=== PATIENT | female | born 1925 | race Caucasian/White ===

== ENCOUNTER 2016-05-04 12:35 | Emergency (ER) | payer MEDICARE ==
[~2016-05-04] VITALS: Ht 152.4 cm; Wt 45.0 kg
[~2016-05-04 12:35] MED LIST: ARIC5TAB PO; DILTCD120 PO; LORTA5 PO; NAME5TAB2 PO; OMEP20.62 PO; POTA20IN3 PO; RIVA15 PO; SERT25TA83 PO
[2016-05-04 12:37] VITALS: BP 110/59; PULSE 75; RESP 20; TEMP 97.3; O2SAT 97
[2016-05-04] MEDS ORDERED: POTA10CA PO (12:43)
[2016-05-04] MEDS ORDERED: MEMA1TAB2 PO (12:43)
[2016-05-04] MEDS ORDERED: DONE10TA7 PO (12:43)
[2016-05-04] MEDS ORDERED: RANI150T PO (12:43)
[2016-05-04] MEDS ORDERED: SERT-132 PO (12:43)
--- NOTE | 2016-05-04 12:43 | PD ---
HPI Chief Complaint: Altered Mental Status Time Seen by Provider: 12:43 Travel History International Travel<30 days: No Contact w/Intl Traveler<30days: No Traveled to known affect area: No History of Present Illness HPI 89-year-old female is brought to the emergency department by EMS for evaluation of syncope. Per EMS report the patient lives at home with her daughter. Per EMS she has a history of dementia and is A&O 2 at baseline. Per EMS the patient's daughter went into check on her while she was in the bathroom and noted that the patient was "slumped over" on the toilet. States that she called EMS and 5 minutes later when they arrived the patient was awake with no complaints. The patient does not recall what happened this morning, she is a poor historian due to her dementia. She currently denies any complaints. Denies any chest pain, shortness of breath, abdominal pain, nausea, vomiting, headache, lightheadedness, dizziness, numbness or tingling, weakness. I do notice that the patient is coughing a little bit, she is unsure how long she has been coughing for. No other complaints. PFSH Past Medical History Hx Anticoagulant Therapy: No Alzheimer's Disease: Yes Cancer: Yes Cardiovascular Problems: No Chemotherapy: Yes (HX OF UTERINE CX; LAST CHEMO 2002) Cerebrovascular Accident: No Diabetes: No Diminished Hearing: Yes ([place]) Endocrine: No Gastrointestinal Disorders: Yes GERD: Yes (GERD) Genitourinary: No Hypertension: Yes Immune Disorder: No Implanted Vascular Access Dvce: No Musculoskeletal: No Neurologic: Yes ([place]) Psychiatric: Yes Reproductive: No Respiratory: No Past Surgical History Hysterectomy: Yes Other Surgery: No Social History Alcohol Use: Yes (1 [employer]QU[employer] DRINK NIGHTLY; LAST DRINK 10/17/14) Tobacco Use: No Substance Use: No Allergies-Medications (Allergen,Severity, Reaction): Coded Allergies: No Known Allergies (Unverified , 05/04/16) Reported Meds & Prescriptions Reported Meds & Active Scripts Active Reported Omeprazole 20 Mg Tab 20 Mg PO DAILY Ranitidine (Ranitidine HCl) 150 Mg Tab 150 Mg PO HS Potassium Chloride ER (Potassium Chloride) 10 Meq Cap 10 Meq PO BID Donepezil 10 Mg Tab 10 Mg PO HS Sertraline (Sertraline HCl) 50 Mg Tab 50 Mg PO DAILY Memantine 10 Mg Tab 10 Mg PO BID Review of Systems Except as stated in HPI: all other systems reviewed are Neg Physical Exam Exam Limitations: Poor Historian (dementia) Narrative GENERAL: Well-nourished and well-developed pleasant elderly female patient in no acute distress who is nontoxic appearing. SKIN: Warm and dry. HEAD: Normocephalic and atraumatic. EYES: No injection, drainage, or hyphema noted. PERRLA. EOMI. ENT: No nasal drainage noted. Oropharynx is clear. NECK: Supple and the trachea is midline. CARDIOVASCULAR: Regular rate and rhythm. RESPIRATORY: Breath sounds are equal bilaterally with no accessory muscle use, wheezing, rhonchi, or crackles. GASTROINTESTINAL: Abdomen is soft, non-tender, and nondistended. MUSCULOSKELETAL: No obvious deformities, swelling, cyanosis, or ecchymosis is present throughout the upper and lower extremities. Patient has full range of motion without any signs of neurovascular compromise. Strength 5/5 upper and lower extremities equal bilaterally. NEUROLOGICAL: Awake, alert, and oriented. Normal speech and gait. Normal heel to rod test. No pronator drift. Cranial nerves are grossly intact. Data Data Last Documented VS Vital Signs Date Time Temp Pulse Resp B/P Pulse Ox O2 Delivery O2 Flow Rate FiO2 05/04/16 13:08 97 Room Air 05/04/16 12:37 97.3 75 20 110/59 Orders Electrocardiogram (05/04/16 12:42) Complete Blood Count With Diff (05/04/16 12:42) Comprehensive Metabolic Panel (05/04/16 12:42) Prothrombin Time / Inr (Pt) (05/04/16 12:42) Act Partial Throm Time (Ptt) (05/04/16 12:42) Troponin I (05/04/16 12:42) Urinalysis - C+S If Indicated (05/04/16 12:42) Chest, Single Ap (05/04/16 12:42) Ct Brain W/O Iv Contrast(Rout) (05/04/16 12:42) Ecg Monitoring (05/04/16 12:42) Iv Access Insert/Monitor (05/04/16 12:42) Cath For Specimen (05/04/16 12:42) Oximetry (05/04/16 12:42) Sodium Chloride 0.9% Flush (Ns Flush) (05/04/16 12:45) Labs Laboratory Tests Test 05/04/16 05/04/16 13:17 13:50 White Blood Count 6.1 TH/MM3 Red Blood Count 4.15 MIL/MM3 Hemoglobin 12.1 GM/DL Hematocrit 36.2 % Mean Corpuscular Volume 87.2 FL Mean Corpuscular Hemoglobin 29.2 PG Mean Corpuscular Hemoglobin 33.5 % Concent Red Cell Distribution Width 13.8 % Platelet Count 213 TH/MM3 Mean Platelet Volume 6.7 FL Neutrophils (%) (Auto) 82.4 % Lymphocytes (%) (Auto) 9.9 % Monocytes (%) (Auto) 7.1 % Eosinophils (%) (Auto) 0.2 % Basophils (%) (Auto) 0.4 % Neutrophils # (Auto) 5.0 TH/MM3 Lymphocytes # (Auto) 0.6 TH/MM3 Monocytes # (Auto) 0.4 TH/MM3 Eosinophils # (Auto) 0.0 TH/MM3 Basophils # (Auto) 0.0 TH/MM3 CBC Comment DIFF FINAL Differential Comment Prothrombin Time 11.2 SEC Prothromb Time International 1.0 RATIO Ratio Activated Partial 25.0 SEC Thromboplast Time Sodium Level 140 MEQ/L Potassium Level 4.0 MEQ/L Chloride Level 104 MEQ/L Carbon Dioxide Level 30.1 MEQ/L Anion Gap 6 MEQ/L Blood Urea Nitrogen 14 MG/DL Creatinine 1.18 MG/DL Estimat Glomerular Filtration 43 ML/MIN Rate Random Glucose 90 MG/DL Calcium Level 8.8 MG/DL Total Bilirubin 0.5 MG/DL Aspartate Amino Transf 16 U/L (AST/SGOT) Alanine Aminotransferase 10 U/L (ALT/SGPT) Alkaline Phosphatase 91 U/L Troponin I LESS THAN 0.02 NG/ML Total Protein 6.5 GM/DL Albumin 3.1 GM/DL Urine Color YELLOW Urine Turbidity CLEAR Urine pH 7.5 Urine Specific Boyd 1.011 Urine Protein TRACE mg/dL Urine Glucose (UA) NEG mg/dL Urine Ketones NEG mg/dL Urine Occult Blood NEG Urine Nitrite NEG Urine Bilirubin NEG Urine Urobilinogen LESS THAN 2.0 MG/DL Urine Leukocyte Esterase NEG Urine RBC 2 /hpf Urine WBC 1 /hpf Urine Hyaline Casts 2 /lpf Urine Mucus FEW /lpf Microscopic Urinalysis Comment CATH-CULT NOT IND MDM Medical Decision Making Medical Screen Exam Complete: Yes Emergency Medical Condition: Yes Differential Diagnosis Vasovagal syndrome versus electrolyte abnormality versus ACS versus TIA versus other Narrative Course 89-year-old female is brought to the emergency department by EMS for evaluation of syncopal episode at home today. Patient is afebrile, vital signs are stable. Physical examination is unremarkable. No focal neurologic deficits. IV access is obtained, labs have been drawn and sent. Chest x-ray and head CT has been ordered and is pending. CBC is unremarkable. CMP shows mild renal insufficiency with an elevated creatinine of 1.18, otherwise unremarkable. Troponin is less than 0.02. Coags are unremarkable. Urinalysis is unremarkable. Head CT shows atrophy but is negative for any acute abnormalities. Chest x-ray shows patchy airspace disease in the right lower lobe suspicious for pneumonia. The patient has remained stable and without complaint while here in the emergency department. I did get a chance to speak with the patient's daughter and caregiver who reports that the patient has been coughing for 2 days. States that she and her who live with the patient and have also had respiratory illnesses over the past week. States that the patient was very weak this morning and did not want to get out of bed. The patient has pneumonia and will be treated with a Z-Demar. Discussed signs and symptoms and when to return to the emergency department. Advised to follow-up with her PCP. Patient and daughter verbalize understanding and agreement with treatment plan. I discussed the case with my attending physician Dr. Skinner who is aware of the patients history, physical examination findings, and treatment plan. Diagnosis Primary Impression: Community acquired pneumonia Referrals: Primary Care Physician Patient Instructions: Community Acquired Pneumonia (ED), General Instructions Additional Instructions: Take medications as prescribed. Follow-up with your Primary Care Physician. Return to the ED for any acute worsening of symptoms. Med/Other Pt SpecificInfo: Prescription(s) given Scripts Guaifenesin ER (Mucus Relief ER)600 Mg Xip750 Mg PO BID PRN (CHEST CONGESTION AND/OR COUGH) 7 Days Ref 0 Prov:Harrison Skinner MD 05/04/16 Azithromycin (Zithromax Z-Demar)250 Mg [id number] Mg PO DIRECTED #1 DSPK Ref 0 500 MG (2 tabs) day 1, then 1 tab days 2-5. Prov:Harrison Skinner MD 05/04/16 Disposition: 01 DISCHARGE HOME Condition: Stable Radha Rios May 04, 2016 12:43
[2016-05-04] MEDS ORDERED: OMEP20TA PO (12:44)
[2016-05-04] MEDS ORDERED: SODIUM CHLORIDE 0.9% FLUSH 5 ML FLUSH IVF PRN (12:45)
[2016-05-04 13:08] VITALS: O2SAT 97
[2016-05-04 13:31] LABS: BASOPHIL % 0.4 % (0.0-2.0); EOSINOPHIL % 0.2 % (0.0-4.0); HEMATOCRIT 36.2 % (35.0-46.0); HEMO FLAGS DIFF FINAL; LYMPH % 9.9 % (9.0-44.0); LYMPHOCYTE # 0.6 TH/MM3 (1.0-4.8); MEAN CELL VOLUME 87.2 FL (80.0-100.0); MEAN CORPUSCULAR HEMOGLOBIN 29.2 PG (27.0-34.0); MEAN CORPUSCULAR HGB CONC 33.5 % (32.0-36.0); MONO % 7.1 % (0.0-8.0); NEUT % 82.4 % (16.0-70.0); PLATELET COUNT 213 TH/MM3 (150-450); RED BLOOD COUNT 4.15 MIL/MM3 (4.00-5.30); RED CELL DISTRIBUTION WIDTH 13.8 % (11.6-17.2); WHITE BLOOD COUNT 6.1 TH/MM3 (4.0-11.0)
[2016-05-04 13:35] LABS: PROTHROMBIN TIME - PATIENT 11.2 SEC (9.8-11.6)
--- NOTE | 2016-05-04 13:35 | RADRPT ---
EXAM DATE/TIME: 05/04/2016 13:10 [facility] COMPARISON: No previous studies available for comparison. INDICATIONS: Syncope. MEDICAL HISTORY: None. SURGICAL HISTORY: None. ENCOUNTER: Initial ACUITY: 1 day PAIN SCORE: 0/10 LOCATION: Bilateral chest FINDINGS: I have no prior films for comparison. The heart is enlarged. The pulmonary vascularity is normal. Patchy air space disease is seen in the right lung base. Pulmonary vascularity is normal. Bones are osteoporotic. CONCLUSION: 1. Patchy air space disease right lung that could be an inflammatory process. 2. Compensated cardiomegaly. 3. Evidence for a previous surgery in the chest. Hudson Carlos MD FACR on May 04, 2016 at 13:31 Board Certified Radiologist. This report was verified electronically.
--- NOTE | 2016-05-04 13:38 | RADRPT ---
EXAM DATE/TIME: 05/04/2016 13:25 [facility] COMPARISON: CT BRAIN W/O CONTRAST, October 18, 2014, 16:09. INDICATIONS : Found slumped over. RADIATION DOSE: 56.77 CTDIvol (mGy) MEDICAL HISTORY : Dementia. Hypertension. Uterine cancer SURGICAL HISTORY : None. ENCOUNTER: Initial ACUITY: 1 day PAIN SCALE: 0/10 LOCATION: cranial TECHNIQUE: Multiple contiguous axial images were obtained of the head. Using automated exposure control and adjustment of the mA and/or kV according to patient size, radiation dose was kept as low as reasonably achievable to obtain optimal diagnostic quality images. FINDINGS: There is marked central and cortical atrophy with dilatation of ventricular and sulcal spaces. There is no parenchymal hemorrhage, acute infarction or mass lesion identified. There are no extra-a xial fluid collections appreciated. The posterior fossa is unremarkable with midline fourth ventricl e. The portion of the orbits and paranasal sinuses visualized are unremarkable. CONCLUSION: Atrophy otherwise negative. Hudson Carlos MD FACR on May 04, 2016 at 13:36 Board Certified Radiologist. This report was verified electronically.
[2016-05-04 13:49] LABS: ALT (GPT) 10 U/L (10-53); ANION GAP 6 MEQ/L (5-15); AST (GOT) 16 U/L (15-37); BICARBONATE 30.1 MEQ/L (21.0-32.0); BLOOD UREA NITROGEN 14 MG/DL (7-18); CHLORIDE 104 MEQ/L (98-107); GLOMERULAR FILTRATION RATE 43 ML/MIN (>89); SODIUM (NA) 140 MEQ/L (136-145)
[2016-05-04 13:52] LABS: ALKALINE PHOSPHATASE 91 U/L (45-117); TOTAL BILIRUBIN ADULT 0.5 MG/DL (0.2-1.0)
[2016-05-04 14:11] LABS: BLOOD, URINE NEG (NEG); GLUCOSE,URINE NEG (NEG); HYALINE CAST, URINE 2 /lpf (RARE); KETONE, URINE NEG (NEG); MUCUS URINE FEW /lpf (OCC); NITRITE,URINE NEG (NEG); PH, URINE 7.5 (5.0-8.5); URINE COLOR YELLOW (YELLW/STRAW)
[2016-05-04 14:12] LABS: COMMENT (UR) CATH-CULT NOT IND; CULTURE IF INDICATED CATH CULTURE NOT IND
[2016-05-04] MEDS ORDERED: GUAI600T11 PO (14:27)
[2016-05-04] MEDS ORDERED: ZITHTAB PO (14:27)
--- NOTE | 2016-05-04 23:06 | EKG ---
Date Performed: 05/04/2016 Time Performed: 13:41:03 PTAGE: 89 years EKG: Sinus rhythm BORDERLINE LEFT AXIS DEVIATION BORDERLINE ECG PREVIOUS TRACING : 10/19/2014 13.52 Compared to prior tracing no significant change DOCTOR: Malick Jiménez Interpretating Date/Time 05/04/2016 23:05:18
== END 2016-05-04 15:01 | disposition home or self-care (01) ==
LOC: NEDAMB 12:35
DX: J18.9 Pneumonia, unspecified organism (principal); F02.80 Dementia in other diseases classified elsewhere, unspecified severity, without behavioral disturbance, psychotic disturbance, mood disturbance, and anxiety; G30.9 Alzheimer's disease, unspecified; I10 Essential (primary) hypertension
CPT/HCPCS: 70450; 71010; 80053; 81001; 84484; 85025; 85610; 85730; 93005; 99285; P9612